=== PATIENT | female | born 1955 | race Caucasian/White ===

== ENCOUNTER 2019-06-15 06:33 | Day surgery (SDC) | payer BC, MEDICARE ==
[2019-06-15] MEDS ORDERED: Sodium Chloride 0.9% 1,000 ML IV SCH (07:00)
[2019-06-15] MEDS ORDERED: Propofol 200 MG/20 ML SDV ONE (07:43)
[2019-06-15] MEDS ORDERED: fentaNYL 100 MCG/2 ML SDV ONE (07:43)
[2019-06-15] MEDS ORDERED: Midazolam 1 MG/ML 2 ML SDV ONE (07:43)
[2019-06-15] MEDS ORDERED: Ondansetron 4 MG/2 ML SDV IVPUSH ONE (08:57)
[2019-06-15] MEDS ORDERED: Scopolamine 1.5 MG Transdermal Patch TOP SCH (09:00)
[2019-06-15 12:19] VITALS: BP 95/46; PULSE 78
--- NOTE | 2019-06-15 13:58 | OR ---
DATE OF PROCEDURE: 06/15/2019 SURGEON: Giovanni James MD PROCEDURE: Colonoscopy. FINDINGS: 1. Diverticulosis, mild, limited to sigmoid colon. 2. Moderate colon prep. 3. No polyps, masses, or abnormalities. COMPLICATIONS: None. [employer] SALES: None. ANESTHESIA: MAC. PREOPERATIVE DIAGNOSIS: Screening colonoscopy. POSTOPERATIVE DIAGNOSIS: Screening colonoscopy. RISKS: Risks, benefits, alternatives, and limitations including, but not limited to infection, bleeding, and perforation were explained to the patient, who wished to proceed. PROCEDURE IN DETAIL: The patient was placed in left lateral decubitus position. Digital rectal exam was performed without abnormality. Scope was introduced and advanced atraumatically to the ileocecal valve. Scope was brought back through the ascending, transverse, descending colon, and retroflexed. No evidence of old or new blood. No masses. No polyps. The prep was moderately acceptable with some retained solid and liquid stool. Approximately 90% luminal surface could be seen. Diverticulosis described as mild, limited to sigmoid colon without evidence of diverticulitis or bleeding. No abnormalities on retroflexion. The patient tolerated the procedure well. Giovanni James MD /[id number]
== END 2019-06-15 13:04 | disposition home or self-care (01) ==
LOC: JP.SDS 06:33
PROVIDERS: ATTEND Surgery
DX: Z12.11 Encounter for screening for malignant neoplasm of colon (principal); K57.30 Diverticulosis of large intestine without perforation or abscess without bleeding; J45.909 Unspecified asthma, uncomplicated; K21.9 Gastro-esophageal reflux disease without esophagitis; E66.9 Obesity, unspecified; Z68.33 Body mass index [BMI] 33.0-33.9, adult; Z87.891 Personal history of nicotine dependence
CPT/HCPCS: 45378; A9270; J2250; J2405; J2704; J3010; J7030

== ENCOUNTER 2021-08-31 06:55 | Day surgery (SDC) | payer MEDICARE ==
[2021-08-31] MEDS ORDERED: Sodium Chloride 0.9% 1,000 ML IV SCH (07:30)
[2021-08-31] MEDS: Sodium Chloride 0.9% 10 ML Syringe FLUSH PRN (07:37)
[2021-08-31 08:39] VITALS: BP 164/91; PULSE 74
== END 2021-08-31 08:40 | disposition home or self-care (01) ==
LOC: JP.SDS 06:55
PROVIDERS: ATTEND Ophthalmology
DX: H25.12 Age-related nuclear cataract, left eye (principal)